=== PATIENT | male | born 1970 | race Caucasian/White ===

== ENCOUNTER 2018-09-20 01:15 | Outpatient (CLI) | payer BC ==
[2018-09-20 11:09] LABS: #Eosinphils 0.1 thou/uL (0.0-0.7); #Lymphocytes 1.6 thou/uL (1.20-3.40); #Monocytes 0.3 thou/uL (0.11-0.59); #Neutrophils 3.5 thou/uL (1.40-6.50); %Basophils 0.6 % (0.0-1.0); %Eosinophils 1.4 % (0.0-10.0); %Lymphocytes 28.1 % (21.0-51.0); %Monocytes 5.6 % (0.0-10.0); %Neutrophils 64.3 % (42.0-75.0); Hemoglobin 14.8 g/dL (14.0-18.0); Mean Corpuscular HGB CONC 34.2 g/dL (32.0-36.0); Mean Corpuscular Hemoglobin 30.2 pg (27.0-31.0); Mean Corpuscular Volume 88.5 fL (78.0-98.0); Platelet Count 196 thou/uL (130-400); RBC Distribution Width 12.2 % (11.5-14.5); Red Blood Cell (RBC) Count 4.91 mill/uL (4.70-6.10); White Blood Cell (WBC) Count 5.5 thou/uL (4.8-10.8)
[2018-09-20 11:36] LABS: Anion Gap 9 mmol/L (10-20); BUN (Urea Nitrogen) 12 mg/dL (8.9-20.6); Calc. Creatinine Clearance 0 mL/min (70-130); Calcium 9.1 mg/dL (7.8-10.44); Carbon Dioxide 27 mmol/L (22-29); Chloride 107 mmol/L (98-107); Estimated GFR-MDRD 75; Glucose 78 mg/dL (70-105); Potassium 4.3 mmol/L (3.5-5.1); Sodium 139 mmol/L (136-145)
--- NOTE | 2018-09-20 20:12 | EKG ---
Test Reason : Blood Pressure : / mmHG Vent. Rate : 066 BPM Atrial Rate : 066 BPM P-R Int : 148 ms QRS Dur : 086 ms QT Int : 404 ms P-R-T Axes : 068 044 021 degrees QTc Int : 423 ms Sinus rhythm with occasional Premature ventricular complexes Otherwise normal ECG When compared with ECG of 03-APR-2008 16:53, Premature ventricular complexes are now Present Nonspecific T wave abnormality no longer evident in Lateral leads QT has shortened Confirmed by SCOTTIE LEE, SDinorah ([id number]) on 09/20/2018 8:12:32 PM Referred By: IERO Confirmed By:DR. Apurva RUBIN MD
== END 2018-09-20 01:16 | disposition home or self-care (01) ==
LOC: LABBT 01:15
PROVIDERS: ATTEND Orthopaedic Surgery
DX: Z01.818 Encounter for other preprocedural examination (principal); M75.101 Unspecified rotator cuff tear or rupture of right shoulder, not specified as traumatic
CPT/HCPCS: 80048; 85025; 93005; 93010

== ENCOUNTER 2018-09-21 06:03 | Day surgery (SDC) | payer BC ==
[2018-09-20 09:46] VITALS: BMI 24.9
[2018-09-21] MEDS ORDERED: Midazolam HCl 2 mg/2 ml Vial ONE (06:17)
[2018-09-21] MEDS ORDERED: Fentanyl 100 MCG/2 ML VIAL ONE ×2 (06:17→06:53)
[2018-09-21] MEDS ORDERED: Bupivacaine/Epinephrine 0.25% 30 ML VIAL ONE (06:45)
[2018-09-21] MEDS ORDERED: Fentanyl 100 MCG/2 ML VIAL IV PRN (07:03)
[2018-09-21] MEDS ORDERED: Ondansetron PF 4 MG/2 ML Vial IVP PRN (07:03)
[2018-09-21] MEDS ORDERED: Ropivacaine 0.2% 550 ML 550 ML NERVE BLCK SCH (07:03)
[2018-09-21] MEDS ORDERED: HYDROcodone/Acetaminophen 10/325 mg Tablet PO PRN ×2 (07:03)
[2018-09-21] MEDS ORDERED: Ketorolac Tromethamine 30 MG/ML VIAL IVP PRN (07:03)
[2018-09-21] MEDS ORDERED: Promethazine HCl 25 MG/ML VIAL IM PRN (07:03)
[2018-09-21] MEDS ORDERED: traMADol HCl 50 MG TAB PO PRN ×2 (07:03)
[2018-09-21] MEDS ORDERED: Zolpidem Tartrate 5 MG TAB PO PRN (07:03)
--- NOTE | 2018-09-21 12:10 | OP ---
DATE OF PROCEDURE: 09/21/2018 PREOPERATIVE DIAGNOSES: Right shoulder impingement with rotator cuff tear and biceps tearing. POSTOPERATIVE DIAGNOSES: Right shoulder impingement with rotator cuff tear and biceps tearing. PROCEDURES PERFORMED: 1. Right shoulder arthroscopy with subacromial decompression. 2. Arthroscopic rotator cuff repair. 3. Arthroscopic biceps tenotomy. SOLUTION ENGINEER: None. ESTIMATED BLOOD LOSS: Minimal. COMPLICATIONS: None. ANESTHESIA: He did have a general anesthetic. He also had a preoperative block. IMPLANTS: We used one 4.75 [employer]posite SwiveLock for fixation of the rotator cuff. INDICATIONS: This is a 48-year-old male, comes in complaining of pain and weakness in the right arm. He has failed nonoperative treatment, and an MRI scan showed him to have a rotator cuff tear and a biceps tendon tear and at this time, he wished to have surgery. DESCRIPTION OF PROCEDURE: After all appropriate consent forms were explained and signed, he was taken back to the operating room and at this time was given a general anesthetic. Once the level of anesthesia was appropriate, he was rolled into the left lateral decubitus position with all bony prominences well padded. Axillary roll was placed beneath the left axilla and a rdz bag was inflated to hold in this position. The arm was taken through full range of motion and then suspended with 10 pounds in standard arthroscopic fashion. The right shoulder and upper extremity were prepped and draped in standard surgical fashion. Bony anatomical landmarks were drawn out. The subacromial space was infiltrated with Marcaine with epinephrine. Posterior portal was then established. Scope was placed into the shoulder joint. Anterior working portal was made using a needle localization technique. Diagnostic arthroscopy commenced in the shoulder joint. The articular surface of the humeral head and glenoid were pristine. No loose bodies were noted in the axillary pouch. Posterior labrum and inferior labrum were in good condition. Anterior labrum was in good condition. The superior labrum had a significant degenerative tear. The biceps tendon itself, the insertion point was unstable, but more than that, the biceps tendon itself had multiple split tears. There were large chunks of the biceps, which were floating in the joint at this time and these were shaved down, so we could better evaluate the biceps. I was then able to pull the biceps up into the joint and at the same time looked down the bicipital groove with the camera and there were significant tearing and thinning and the tendon appeared almost atretic the further down we went. This was felt to not be suitable for right biceps tenodesis and therefore the surface energy was used to perform a biceps tenotomy. The cuff itself was then evaluated and the anterior position was felt to be in pretty good position. As we went posteriorly into the area of the infraspinatus, a significant partial-thickness undersurface tearing was noted and the edges were smoothed with the shaver. At this time, we then debrided and coagulated the significant synovitis, which was in the glenohumeral joint posterior to the labrum as well as anterior to the labrum secondary to the significant pathology. Once this had been done, we then removed our scope and replaced it into the subacromial space. Lateral working portal was then made. The bursa was removed from off the underlying cuff. Bony subacromial decompression was performed with the shaver. The cuff on this portion in the bursal area was found to be in pretty good condition. Therefore, the scope was replaced into the glenohumeral joint and we then located the area with a significant partial tear and a needle was placed into this region percutaneously. We then repositioned the camera back into the subacromial space. We were then able to probe this area and indeed the probe was found to go down into a small defect. We then removed all the torn portion of the cuff from around this area to fully visualize our torn rotator cuff. Anterior and posterior to the small defect were good rotator cuff fibers. At this time, the soft tissue off the bone was removed using the surface and this was very gently decorticated, but not fully decorticated. We then placed a PassPort cannula through the lateral portal and decided to do a SpeedFix technique for this very small tear. A FiberTape was placed in inverted mattress fashion through the tear and was then placed into a 4.75 SwiveLock in standard fashion. We then used the one suture that was still attached to the SwiveLock and placed a simple suture just anterior to this closing down our defect. At this time, the shoulder was taken through full range of motion. It was found to be intact. Repair was deemed appropriate and at this time, the scope was removed, the shoulder was drained and the portals were closed with nylon suture. Bulky sterile dressing was applied. The patient was then awakened and taken to recovery room in stable condition. All counts were correct at the end of the case and he did receive preoperative IV antibiotics. Job ID: [id number] [facility]
== END 2018-09-21 11:10 | disposition home or self-care (01) ==
LOC: SDC 06:03
PROVIDERS: ATTEND Orthopaedic Surgery
PROC: 0LS14ZZ Reposition Right Shoulder Tendon, Percutaneous Endoscopic Approach (ICD-10-PCS; principal; 2018-09-21)
PROC: 0LQ14ZZ Repair Right Shoulder Tendon, Percutaneous Endoscopic Approach (ICD-10-PCS; principal; 2018-09-21)
PROC: 0RNJ4ZZ Release Right Shoulder Joint, Percutaneous Endoscopic Approach (ICD-10-PCS; principal; 2018-09-21)
DX: M75.101 Unspecified rotator cuff tear or rupture of right shoulder, not specified as traumatic (principal); M75.41 Impingement syndrome of right shoulder; M66.821 Spontaneous rupture of other tendons, right upper arm; G89.18 Other acute postprocedural pain
CPT/HCPCS: A4306; C1713; J0690; J2250; J2795; J3010

== ENCOUNTER 2024-04-09 10:53 | Outpatient (CLI) | payer BC | END 2024-04-09 10:54 | disposition home or self-care (01) | LOC: MRI 10:53 | PROVIDERS: ATTEND Family Medicine | DX: M25.561 Pain in right knee (principal); M25.562 Pain in left knee; M17.0 Bilateral primary osteoarthritis of knee; S83.282A Other tear of lateral meniscus, current injury, left knee, initial encounter; M89.9 Disorder of bone, unspecified ==